=== PATIENT | male | born 1965 | race Caucasian/White ===

== ENCOUNTER 2016-09-28 23:38 | Inpatient (IN) | payer MEDICAID, OTHER ==
[~2016-09-28] VITALS: Ht 175.3 cm; Wt 108.9 kg
[~2016-09-28 23:38] MED LIST: KEPP500 PO; PHEN100C4 PO
[2016-09-29] MEDS ORDERED: KETOROLAC 30MG/ML VIAL IV STA (01:13)
[2016-09-29 01:41] LABS: BASOPHILS % 0.4 % (0.0-2.0); EOSINOPHILS % 1.3 % (0.0-5.0); HEMATOCRIT. 39.3 % (42.0-52.0); HEMOGLOBIN. 13.9 g/dL (14.0-18.0); LYMPHOCYTES % 20.7 % (20.0-50.0); MEAN CORPUSCULAR HEMOGLOBIN 30.7 pg (28.0-32.0); MEAN CORPUSCULAR VOLUME 87.2 fL (80.0-94.0); MEAN PLATELET VOLUME 8.3 fl (7.4-10.4); MONOCYTES % 4.5 % (2.0-8.0); NEUTROPHILS % 73.1 % (40.0-76.0); PLATELET 93 x1000/uL (130-400); RED BLOOD CELL COUNT 4.51 mill/uL (4.7-6.1); RED CELL DISTRIBUTION WIDTH 12.7 % (11.6-14.6)
[2016-09-29 01:56] LABS: CARBON DIOXIDE 28 mEq/L (21-32); CHLORIDE 104 mEq/L (98-107); TROPONIN I < 0.02 ng/mL (0.00-0.04)
[2016-09-29] MEDS ORDERED: HYDROCODONE/ACETAMINOPHEN 10/325MG TABLET PO ONE (05:30)
[2016-09-29] MEDS ORDERED: LORAZEPAM 2MG/ML CPJ IV ONE ×3 (06:30→08:00)
[2016-09-29] MEDS ORDERED: LEVETIRACETAM 500MG PREMIX 100 ML IV ONE (06:30)
[2016-09-29] MEDS ORDERED: LORAZEPAM 2MG/ML CPJ ONE (06:35)
[2016-09-29] MEDS ORDERED: PHENYTOIN SODIUM 1,000 MG in SODIUM CHLORIDE 0.9% 100 ML IV ONE (08:30)
[2016-09-29] MEDS ORDERED: CLONIDINE 0.1MG TABLET PO PRN (10:45)
[2016-09-29] MEDS ORDERED: ONDANSETRON HCL 4MG/2ML VIAL IV PRN (10:45)
[2016-09-29] MEDS ORDERED: IPRATROPIUM/ALBUTEROL 0.5-3(2.5)MG/3ML NEB INH PRN (10:45)
[2016-09-29] MEDS ORDERED: ACETAMINOPHEN 325MG TABLET PO PRN (10:45)
[2016-09-29] MEDS ORDERED: LORAZEPAM 2MG/ML CPJ IV PRN (10:45)
[2016-09-29 14:34] VITALS: BP 109/68
[2016-09-29 15:33] VITALS: BP 100/72
[2016-09-29 16:00] VITALS: BP 129/80
[2016-09-29 18:00] VITALS: BP 105/68
[2016-09-29 18:44] LABS: CLARITY URINE CLEAR (CLEAR); COLOR URINE DARK YELLOW (YELLOW); GLUCOSE URINE NEGATIVE (NEGATIVE); KETONES URINE NEGATIVE (NEGATIVE); LEUKOCYTE ESTERASE URINE TRACE (NEGATIVE); NITRITE URINE NEGATIVE (NEGATIVE); OCCULT BLOOD URINE 3+ (NEGATIVE); PH URINE 5.5 (4.5-8.0); PROTEIN URINE 1+ (NEGATIVE); SPECIFIC GRAVITY URINE 1.026 (1.005-1.030)
[2016-09-29 19:04] LABS: *AMPHETAMINES SCREEN URINE NEGATIVE (NEGATIVE); *BARBITURATES SCREEN URINE NEGATIVE (NEGATIVE); *BENZODIAZEPINES SCREEN URINE NEGATIVE (NEGATIVE); *COCAINE SCREEN URINE NEGATIVE (NEGATIVE); CANNABINOID URINE SCREEN NEGATIVE (NEGATIVE); METHADONE URINE SCREEN NEGATIVE (NEGATIVE); OPIATES URINE SCREEN PRESUMTIVE POSITIVE (NEGATIVE); PHENCYCLIDINE URINE SCREEN NEGATIVE (NEGATIVE)
[2016-09-29 20:00] VITALS: BP 124/40
[2016-09-29] MEDS ORDERED: PHENYTOIN SODIUM EXTENDED 100MG CAPSULE PO SCH (21:00)
[2016-09-29] MEDS: LEVETIRACETAM 500MG TABLET PO SCH (21:18)
[2016-09-29 22:00] VITALS: BP 102/65
[2016-09-30] VITALS (11 sets, daily range): BP systolic 100–127; BP diastolic 58–80
[2016-09-30 03:59] LABS: BASOPHILS % 0.6 % (0.0-2.0); EOSINOPHILS % 1.9 % (0.0-5.0); HEMATOCRIT. 39.5 % (42.0-52.0); HEMOGLOBIN. 13.9 g/dL (14.0-18.0); LYMPHOCYTES % 29.1 % (20.0-50.0); MEAN CORPUSCULAR HEMOGLOBIN 30.7 pg (28.0-32.0); MEAN CORPUSCULAR VOLUME 87.1 fL (80.0-94.0); MEAN PLATELET VOLUME 8.1 fl (7.4-10.4); MONOCYTES % 5.5 % (2.0-8.0); NEUTROPHILS % 62.9 % (40.0-76.0); PLATELET 94 x1000/uL (130-400); RED BLOOD CELL COUNT 4.54 mill/uL (4.7-6.1); RED CELL DISTRIBUTION WIDTH 12.4 % (11.6-14.6)
[2016-09-30 04:19] LABS: CARBON DIOXIDE 28 mEq/L (21-32); CHLORIDE 106 mEq/L (98-107); HDL CHOLESTEROL 51 mg/dL (40-59); LDL CHOLESTEROL 78 mg/dL (5-100); PHENYTOIN 8.6 ug/mL (10-20); TROPONIN I < 0.02 ng/mL (0.00-0.04)
[2016-09-30] MEDS: LEVETIRACETAM 500MG TABLET PO SCH (08:15)
[2016-09-30] MEDS: HYDROCODONE/ACETAMINOPHEN 5/325MG TABLET PO PRN ×2 (11:22→17:20)
[2016-09-30] MEDS ORDERED: PHEN100C4 PO (13:52)
[2016-09-30] MEDS ORDERED: HYDR-523 PO (13:56)
== END 2016-09-30 19:30 | disposition home or self-care (01) | DRG 53 ==
LOC: ER 23:38 → EDBEDREQ 09-29 07:59 → 5EST 09-29 09:16 → EDBEDREQSVC 09-29 09:21 → ENRESERV 09-29 10:08
PROVIDERS: ADMIT Internal Medicine; ATTEND Internal Medicine
DX: G40.911 Epilepsy, unspecified, intractable, with status epilepticus (principal); I11.9 Hypertensive heart disease without heart failure; D64.9 Anemia, unspecified; I51.7 Cardiomegaly; Z79.899 Other long term (current) drug therapy; Z78.1 Physical restraint status; Z91.19 Patient's noncompliance with other medical treatment and regimen; Z91.14 Patient's other noncompliance with medication regimen
CPT/HCPCS: 36415; 70450; 70551; 71010; 80053; 80061; 80185; 80305; 81001; 82542; 84484; 85025; 85379; 87040; 87086; 93005; 93306; 93970; 96374; 96375; 96376; 99291; J1165; J1885; J1953; J2060; J7050; A4315